=== PATIENT | male | born 1975 | race Hispanic/Latino ===

== ENCOUNTER 2017-05-20 07:34 | Inpatient (IN) | payer MEDICARE, OTHER ==
[2017-05-20 07:35] VITALS: PULSE 112; BMI 24.0
[2017-05-20] MEDS ORDERED: Sodium Chloride 0.9% 1,000 ML IV ONE ×2 (08:21→10:36)
[2017-05-20] MEDS ORDERED: Vancomycin 1 GM 1 GM/250 ML BAG IV STA (08:36)
--- NOTE | 2017-05-20 08:48 | C.PDOC ---
History Of Present Illness 41-year-old male, PMH includes HIV, Hep C, IVDA and EtOH Abuse, comes in with complaints of pain to his left arm for the past week, that is associated with redness and swelling, which has been worsening. Patient is also complaining of a sore throat. Last drug use was three days ago. Patient is homeless. Time Seen by Provider: 05/20/17 07:50 Chief Complaint (Nursing): Abnormal Skin Integrity History Per: Patient History/Exam Limitations: no limitations Onset/Duration Of Symptoms: Days Current Symptoms Are (Timing): Still Present Past Medical History Reviewed: Historical Data, Nursing Documentation, Vital Signs Vital Signs: Last Vital Signs Temp 98.2 F 05/20/17 07:40 Pulse 98 H 05/20/17 10:39 Resp 20 05/20/17 10:39 BP 133/91 H 05/20/17 10:39 Pulse Ox 99 05/20/17 10:39 - Medical History PMH: Anxiety, Arthritis, Bronchitis, Hepatitis (C), HIV, Pneumonia, Seizures - [facility] Procedures ALCOHOL DETOXIFICATION (08/13/14) BYPASS TRACHEA TO CUTANEOUS WITH TRACH DEV, OPEN APPROACH (04/25/16) DRAINAGE OF L PLEURAL CAV WITH DRAIN DEV, PERC APPROACH (04/25/16) DRAINAGE OF LEFT UPPER LOBE BRONCHUS, ENDO, DIAGN (04/25/16) DRAINAGE OF RIGHT LOWER LOBE BRONCHUS, ENDO, DIAGN (04/25/16) DRAINAGE OF RIGHT MIDDLE LOBE BRONCHUS, ENDO, DIAGN (04/25/16) INFLUENZA VACCINATION (08/13/14) INSERTION OF ENDOTRACHEAL AIRWAY INTO TRACHEA, VIA OPENING (04/25/16) INSERTION OF FEEDING DEVICE INTO STOMACH, PERC APPROACH (04/25/16) INSPECTION OF TRACHEOBRONCHIAL TREE, ENDO (04/25/16) RESPIRATORY VENTILATION, GREATER THAN 96 CONSECUTIVE HOURS (04/25/16) VACCINATION NEC (08/13/14) Family History: States: No Known Family Hx - Social History Hx Tobacco Use: Yes Hx Alcohol Use: Yes Hx Substance Use: Yes (used coccaine & heroine everyday) - Immunization History Hx Tetanus Toxoid Vaccination: No Hx Influenza Vaccination: No Hx Pneumococcal Vaccination: No Review Of Systems Except As Marked, All Systems Reviewed And Found Negative. Constitutional: Negative for: Fever, Chills ENT: Positive for: Throat Pain Respiratory: Negative for: Shortness of Breath Gastrointestinal: Negative for: Nausea, Vomiting Musculoskeletal: Positive for: Arm Pain Skin: Positive for: Other (infection) Neurological: Negative for: Weakness, Numbness, Headache, Dizziness Physical Exam - Physical Exam Appears: Non-toxic, No Acute Distress, Unkempt Skin: Warm, Dry, Other (Track gimenez to B/L forearms. 4x4cm tender, erythematous , fluctuant mass to proximal left forearm with surrounding ertyhema and streaking) Head: Atraumatic, Normacephalic Eye(s): bilateral: Normal Inspection Nose: Normal Oral Mucosa: Moist Lips: Normal Appearing Teeth: No Normal Dentition (Poor), Caries, Edentulous Throat: No Erythema, No Exudate, Other (No thrush) Neck: Normal ROM Chest: Symmetrical Cardiovascular: Rhythm Regular, No Murmur Respiratory: Normal Breath Sounds, No Accessory Muscle Use Extremity: Normal ROM, No Deformity, Other (see skin ) Pulses: Left Radial: Normal, Right Radial: Normal Neurological/Psych: Oriented x3, Normal Speech Gait: Unable To Assess ED Course And Treatment - Laboratory Results Result Diagrams: 05/20/17 09:20 05/20/17 09:20 Lab Interpretation: Abnormal O2 Sat by Pulse Oximetry: 100 (room air) Pulse Ox Interpretation: Normal Medical Decision Making Medical Decision Making: Impression: IVDA and acute cellulitis of arm Plan: * EtOH Serum, CMP, UDS * CBC, PT, PTT * IVF, Vanco * Blood Culture * Urinalysis Progress: Labs ordered and reviewed. Case discussed with Dr Reddy who also evaluated patient and agreed with plan. Order IV Vanco. 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 Jaivan ordered 1[address] Call and spoke to Dr Prudence Lebron who accepts admission Disposition - Disposition Disposition: HOSPITALIZED Disposition Time: 11:34 Condition: STABLE Forms: [facility] (Frisian) - Clinical Impression Clinical Impression: Cellulitis and abscess of upper arm and forearm, IV drug abuse, Alcohol abuse - Scribe Statement The provider has reviewed the documentation as recorded by the Scribe (Montse Black) All medical record entries made by the Scribe were at my direction and personally dictated by me. I have reviewed the chart and agree that the record accurately reflects my personal performance of the history, physical exam, medical decision making, and the department course for this patient. I have also personally directed, reviewed, and agree with the discharge instructions and disposition. Decision To Admit - Pt Status Changed To: Hospital Disposition Of: Inpatient - Admit Certification Admit to Inpatient:: After my assessment, the patient will require hospitalization for at least two midnights. This is because of the severity of symptoms shown, intensity of services needed, and/or the medical risk in this patient being treated as an outpatient. - InPatient: Physician Admission Certification: I certify that this patient requires 2 or more midnights of care for the following reason:: Patient with history of HIV, alcohol and IVDA with acute cellulitis and abcess of arm, will need IV antibiotics - . Bed Request Type: Regular Patient Diagnosis: Cellulitis and abscess of upper arm and forearm, IV drug abuse, Alcohol abuse
[2017-05-20] MEDS ORDERED: Vancomycin 1 GM 1 GM/250 ML BAG IVPB ONE (09:21)
[2017-05-20] MEDS ORDERED: Sodium Chloride 0.9% 1,000 ML ONE (09:21)
[2017-05-20 09:24] LABS: ABG ALLEN TEST POS; BASO % 0.5 % (0.0-2.0); DRAW SITE LR; EOS # 0.1 K/uL (0.0-0.7); EOS % 2.4 % (0.0-4.0); HEMATOCRIT 26.8 % (35.0-51.0); LYMPH # 0.6 K/uL (1.0-4.3); LYMPH % 9.9 % (20.0-40.0); MEAN CELL VOLUME 84.1 fL (80.0-94.0); MEAN CORPUSCULAR HEMOGLOBIN 27.6 pg (27.0-31.0); MEAN CORPUSCULAR HGB CONC 32.8 g/dL (33.0-37.0); MONO # 0.5 K/uL (0.0-0.8); MONO % 8.5 % (0.0-10.0); PLATELET COUNT 214 K/uL (130-400); RED CELL DISTRIBUTION WIDTH 18.7 % (11.5-14.5); WHITE BLOOD COUNT 6.1 K/uL (4.8-10.8)
[2017-05-20 09:29] LABS: RBC URINE < 1 /hpf (0-3); URINE BILIRUBIN NEGATIVE (NEGATIVE); URINE BLOOD NEGATIVE (NEGATIVE); URINE COLOR Yellow (YELLOW); URINE GLUCOSE (UA) NORMAL (Normal); URINE KETONE NEGATIVE (NEGATIVE); URINE LEUKOCYTE ESTERASE NEG Leu/uL (Negative); URINE PROTEIN NEGATIVE (NEGATIVE); URINE UROBILINOGEN NORMAL mg/dL (0.2-1.0); WBC URINE 1 /hpf (0-5)
[2017-05-20 09:35] LABS: CHLORIDE 102 mmol/L (98-107); SODIUM 137 mmol/L (132-148)
[2017-05-20 09:36] LABS: POTASSIUM 3.3 mmol/L (3.6-5.2)
[2017-05-20 09:38] LABS: ALB/GLOB RATIO 0.7 (1.0-2.1); ALKALINE PHOSPHATASE 124 U/L (38-126); ALT/SGPT 48 U/L (21-72); AST/SGOT 110 U/L (17-59); BILIRUBIN,TOTAL 0.5 mg/dL (0.2-1.3); BLOOD UREA NITROGEN 10 mg/dL (9-20); CARBON DIOXIDE 24 mmol/L (22-30); GFR AFRICAN-AMERICAN > 60; GLUCOSE,RANDOM 103 mg/dL (75-110); TOTAL PROTEIN 6.9 g/dL (6.3-8.3)
[2017-05-20 09:39] LABS: ALCOHOL SERUM < 10 mg/dl (0-10)
[2017-05-20 10:20] LABS: BASOPHIL 1 % (0-2); EOSINOPHIL 2 % (0-4); NEUTROPHIL 81 % (50-75); TOTAL CELLS COUNTED 100
[2017-05-20 10:22] LABS: LARGE PLATELETS PRESENT
[2017-05-20] MEDS ORDERED: Potassium Chloride 20 mEq ER Tab PO STA (11:45)
[2017-05-20] MEDS ORDERED: Potassium Chloride 20 mEq ER Tab PO ONE ×2 (11:53→22:45)
--- NOTE | 2017-05-20 19:49 | CP.PCM.HP ---
Present on Admission - Present on Admission Any Indicators Present on Admission: No Past Patient History - Infectious Disease Hx of Infectious Diseases: None - Past Medical History & Family History Past Medical History?: Yes - Past Social History Smoking Status: Light Smoker < 10 Cigarettes Daily - CARDIAC Hx Cardiac Disorders: No - PULMONARY Hx Bronchitis: Yes Hx Pneumonia: Yes - NEUROLOGICAL Hx Seizures: Yes - HEENT Hx HEENT Problems: No - RENAL Hx Chronic Kidney Disease: No Hx Kidney Stones: No - ENDOCRINE/METABOLIC Hx Endocrine Disorders: No - HEMATOLOGICAL/ONCOLOGICAL Hx Human Immunodeficiency Virus (HIV): Yes - INTEGUMENTARY Hx Dermatological Problems: No - MUSCULOSKELETAL/RHEUMATOLOGICAL Hx Falls: No - GASTROINTESTINAL Hx Gastrointestinal Disorders: No - GENITOURINARY/GYNECOLOGICAL Hx Genitourinary Disorders: No - PSYCHIATRIC Hx Substance Use: Yes - SURGICAL HISTORY Other/Comment: intracranial surgery as a child - ANESTHESIA Hx Anesthesia: Yes Hx Anesthesia Reactions: No Hx Malignant Hyperthermia: No Meds Allergies/Adverse Reactions: Allergies Allergy/AdvReac Type Severity Reaction Status Date / Time acetaminophen [From Tylenol] Allergy Mild RASH Verified 05/23/16 08:59 ketorolac tromethamine Allergy RASH Verified 05/23/16 08:59 [From Toradol] Results - Vital Signs Recent Vital Signs: Last Vital Signs Temp 100.0 F H 05/20/17 15:07 Pulse 94 H 05/20/17 15:07 Resp 20 05/20/17 15:07 BP 157/99 H 05/20/17 15:07 Pulse Ox 99 05/20/17 15:07 - Labs Result Diagrams: 05/20/17 09:20 05/20/17 09:20
--- NOTE | 2017-05-20 20:55 | CP.PCM.CON ---
<Roshan Ortiz - Last Filed: 05/20/17 20:50> History of Present Illness - History of Present Illness History of Present Illness: Surgery: Dr. Lowry CC: LUE abscess HPI: 41M w. pmh of IVDA, hep C, HIV, has not taken meds in 3 yrs, presents to ED w. progressively worsening LUE abscess x 1 week. Pt states that he noticed the abscess develop a few days after injecting heroin in the L arm. Abscess grew in size and pain increased in intensity. Pt states that the pain is constant, made worse w. movement or when pressure is applied. He denies any drainage. He does report F/C and did have N/V. He denies VILCHIS/blurred vision, no CP/palpitations, no SOB/cough, no diarrhea, no hematuria/dysuira, no weakness/ fatigue. PMH: HIV, Hep C PSH: none Meds: none ALL: tylenol Social: +Heroin/Cocaine Fhx: non-contributory Review of Systems - Review of Systems All systems: reviewed and no additional remarkable complaints except (HPI) Past Patient History - Infectious Disease Hx of Infectious Diseases: None - Past Medical History & Family History Past Medical History?: Yes - Past Social History Smoking Status: Light Smoker < 10 Cigarettes Daily - CARDIAC Hx Cardiac Disorders: No - PULMONARY Hx Bronchitis: Yes Hx Pneumonia: Yes - NEUROLOGICAL Hx Seizures: Yes - HEENT Hx HEENT Problems: No - RENAL Hx Chronic Kidney Disease: No Hx Kidney Stones: No - ENDOCRINE/METABOLIC Hx Endocrine Disorders: No - HEMATOLOGICAL/ONCOLOGICAL Hx Human Immunodeficiency Virus (HIV): Yes - INTEGUMENTARY Hx Dermatological Problems: No - MUSCULOSKELETAL/RHEUMATOLOGICAL Hx Falls: No - GASTROINTESTINAL Hx Gastrointestinal Disorders: No - GENITOURINARY/GYNECOLOGICAL Hx Genitourinary Disorders: No - PSYCHIATRIC Hx Substance Use: Yes - SURGICAL HISTORY Other/Comment: intracranial surgery as a child - ANESTHESIA Hx Anesthesia: Yes Hx Anesthesia Reactions: No Hx Malignant Hyperthermia: No Meds Allergies/Adverse Reactions: Allergies Allergy/AdvReac Type Severity Reaction Status Date / Time acetaminophen [From Tylenol] Allergy Mild RASH Verified 05/23/16 08:59 ketorolac tromethamine Allergy RASH Verified 05/23/16 08:59 [From Toradol] - Medications Medications: Current Medications Hydromorphone HCl (Dilaudid) 2 mg IVP Q6H PRN PRN Reason: Pain, severe (8-10) Last Admin: 05/20/17 17:55 Dose: 2 mg Ceftriaxone Sodium (Rocephin Iv 1 Gm Duplex) 50 mls @ 50 mls/30 min IVPB Q12H [facility] Vancomycin/Sodium Chloride (Vancocin) 1 gm in 200 mls @ 133 mls/hr IVPB Q12H [facility] Stop: 05/25/17 22:01 Potassium Chloride (Potassium Chloride 20 Meq/100 Ml) 20 meq in 100 mls @ 50 mls/hr IVPB ONCE ONE Stop: 05/20/17 22:59 Last Admin: 05/20/17 20:27 Dose: 50 mls/hr Lorazepam (Ativan) 1 mg IVP Q6H PRN PRN Reason: Anxiety Last Admin: 05/20/17 20:22 Dose: 1 mg Physical Exam - Constitutional Appears: Non-toxic, No Acute Distress, Unkempt, Older Than Stated Age - Head Exam Head Exam: ATRAUMATIC, NORMOCEPHALIC - Eye Exam Eye Exam: EOMI. absent: Scleral icterus Pupil Exam: PERRL - ENT Exam ENT Exam: Mucous Membranes Moist Additional comments: poor dentition - Neck Exam Neck exam: Positive for: Full Rom - Respiratory Exam Respiratory Exam: NORMAL BREATHING PATTERN. absent: Accessory Muscle Use, Respiratory Distress - Cardiovascular Exam Cardiovascular Exam: REGULAR RHYTHM - GI/Abdominal Exam GI & Abdominal Exam: Soft. absent: Tenderness - Extremities Exam Extremities exam: Negative for: calf tenderness, pedal edema Additional comments: LUE, large abscess on forearm, + erythema, +induration/fluctuance, tender to palpation, sensation and motor fxn intact, distal pulse palpable - Neurological Exam Neurological exam: Alert, Oriented x3 - Psychiatric Exam Psychiatric exam: Normal Affect, Normal Mood - Skin Skin Exam: Dry, Warm Results - Vital Signs Recent Vital Signs: Last Vital Signs Temp 100.0 F H 05/20/17 15:07 Pulse 94 H 05/20/17 15:07 Resp 20 05/20/17 15:07 BP 157/99 H 05/20/17 15:07 Pulse Ox 99 05/20/17 15:07 - Labs Result Diagrams: 05/20/17 09:20 05/20/17 09:20 Assessment & Plan - Assessment and Plan (Free Text) Assessment: 41M w. LUE abscess -vanco/zosyn -pain meds -warm compress 20 min TID to affected area -OR Monday for I&D -d/w attending Angel PGY3 <Elpidio Lowry - Last Filed: 05/22/17 10:40> Meds - Medications Medications: Current Medications Al Hydrox/Mg Hydrox/Simethicone (Maalox 30 Ml) 30 ml PO Q6 PRN PRN Reason: Indigestion / Heartburn Last Admin: 05/21/17 16:08 Dose: 30 ml Chlordiazepoxide (Librium) 25 mg PO Q6 [facility] PRN Reason: Taper Stop: 05/25/17 17:59 Last Admin: 05/22/17 06:03 Dose: Not Given Hydromorphone HCl (Dilaudid) 2 mg IVP Q6H PRN PRN Reason: Pain, severe (8-10) Last Admin: 05/22/17 07:59 Dose: 2 mg Hydromorphone HCl (Dilaudid) 0.5 mg IVP Q5M PRN PRN Reason: Pain, severe (8-10) Stop: 05/22/17 12:22 Vancomycin/Sodium Chloride (Vancocin) 1 gm in 200 mls @ 133 mls/hr IVPB Q12H [facility] Stop: 05/25/17 22:01 Last Admin: 05/21/17 22:37 Dose: 133 mls/hr Piperacillin Sod/Tazobactam Sod (Zosyn 3.375 Gm Iv Premix) 3.375 gm in 50 mls @ 100 mls/hr IVPB Q6H [facility] Last Admin: 05/22/17 04:16 Dose: 100 mls/hr Sodium Chloride (Sodium Chloride 0.9%) 1,000 mls @ 100 mls/hr IV .Q10H [facility] Last Admin: 05/22/17 04:51 Dose: 100 mls/hr Lorazepam (Ativan) 1 mg IVP Q6H PRN PRN Reason: Anxiety Last Admin: 05/22/17 04:41 Dose: 1 mg Methadone HCl (Methadone) 5 mg PO DAILY [facility] Stop: 05/23/17 11:00 Last Admin: 05/22/17 09:10 Dose: 5 mg Ondansetron HCl (Zofran Inj) 4 mg IVP ONCE PRN PRN Reason: Nausea/Vomiting Stop: 05/22/17 12:22 Trimethoprim/Sulfamethoxazole (Bactrim Ds Tab) 1 tab PO Q12H [facility] Last Admin: 05/22/17 04:24 Dose: 1 tab Results - Vital Signs Recent Vital Signs: Last Vital Signs Temp 98.4 F 05/22/17 09:08 Pulse 96 H 05/22/17 09:08 Resp 20 05/22/17 09:08 BP 128/86 05/22/17 09:08 Pulse Ox 98 05/22/17 09:08 - Labs Result Diagrams: 05/20/17 09:20 05/21/17 13:22 Labs: Laboratory Results - last 24 hr 05/21/17 13:22 Sodium 134 Potassium 4.2 Chloride 98 Carbon Dioxide 23 Anion Gap 17 BUN 12 Creatinine 0.6 L Est GFR ( Amer) > 60 Est GFR (Non-Af Amer) > 60 Random Glucose 137 H Calcium 8.3 L Total Bilirubin 0.4 AST 91 H ALT 43 Alkaline Phosphatase 87 Total Protein 6.9 Albumin 2.9 L Globulin 4.0 H Albumin/Globulin Ratio 0.7 L Attending/Attestation - Attestation I have personally seen and examined this patient.: Yes I have fully participated in the care of the patient.: Yes I have reviewed all pertinent clinical information: Yes Notes (Text): 05/22/17 10:31 Pt was seen and examined at bedside Agree with above note and assessment Pt with Left forearm cellulitis, IVDA C/w IV antibiotics Plan d/w pt in detail Risk and benefit explained in detail.
[2017-05-20] MEDS: Aluminum Hydroxide/Magnesium Hydroxide Susp (30 mL) PO PRN (22:43)
[2017-05-20] MEDS: cefTRIAXone IV 1 gm in Dextros 50 ML IVPB SCH (22:44)
[2017-05-20] MEDS: Vancomycin 1 gm/NS 200 ml 1 GM/200 ML BAG IVPB SCH (23:18)
[2017-05-21] MEDS ORDERED: Aluminum Hydroxide/Magnesium Hydroxide Susp (30 mL) PO SCH
[2017-05-21] MEDS: Piperacill/Tazo 3.375gm in Dex 3.375 GM/50 ML BAG IVPB SCH ×5 (01:00→22:36)
[2017-05-21] MEDS: cefTRIAXone IV 1 gm in Dextros 50 ML IVPB SCH (08:19)
[2017-05-21] MEDS: Vancomycin 1 gm/NS 200 ml 1 GM/200 ML BAG IVPB SCH ×2 (10:45→22:37)
--- NOTE | 2017-05-21 10:48 | CP.PCM.PN ---
<Juvencio George - Last Filed: 05/21/17 10:45> Subjective - Date & Time of Evaluation Date of Evaluation: 05/21/17 Time of Evaluation: 07:57 - Subjective Subjective: SURGERY NOTE FOR DR. LOWRY 41M seen and examined at bedside. Continues to complain of left forearm pain 2/ 2 to abscess. denies fevers/chills. Objective - Vital Signs/Intake and Output Vital Signs (last 24 hours): Temp Pulse Resp BP Pulse Ox 98.1 F 108 H 18 125/85 97 05/21/17 07:05 05/21/17 09:48 05/21/17 07:05 05/21/17 09:48 05/21/17 07:05 Intake and Output: 05/21/17 05/21/17 06:59 18:59 Intake Total 1730 Output Total 2400 Balance -670 - Medications Medications: Current Medications Al Hydrox/Mg Hydrox/Simethicone (Maalox 30 Ml) 30 ml PO Q6 PRN PRN Reason: Indigestion / Heartburn Last Admin: 05/20/17 22:43 Dose: 30 ml Hydromorphone HCl (Dilaudid) 2 mg IVP Q6H PRN PRN Reason: Pain, severe (8-10) Last Admin: 05/21/17 08:17 Dose: 2 mg Ceftriaxone Sodium (Rocephin Iv 1 Gm Duplex) 50 mls @ 50 mls/30 min IVPB Q12H [facility] Last Admin: 05/21/17 08:19 Dose: 50 mls/30 min Vancomycin/Sodium Chloride (Vancocin) 1 gm in 200 mls @ 133 mls/hr IVPB Q12H [facility] Stop: 05/25/17 22:01 Last Admin: 05/20/17 23:18 Dose: 133 mls/hr Piperacillin Sod/Tazobactam Sod (Zosyn 3.375 Gm Iv Premix) 3.375 gm in 50 mls @ 100 mls/hr IVPB Q6H [facility] Last Admin: 05/21/17 09:55 Dose: 100 mls/hr Lorazepam (Ativan) 1 mg IVP Q6H PRN PRN Reason: Anxiety Last Admin: 05/21/17 09:55 Dose: 1 mg - Labs Labs: PT 10.9 SECONDS (9.7-12.2) 05/20/17 09:20 INR 1.0 05/20/17 09:20 APTT 26 SECONDS (21-34) 05/20/17 09:20 - Constitutional Appears: Non-toxic, No Acute Distress - Respiratory Exam Respiratory Exam: Clear to Ausculation Bilateral, NORMAL BREATHING PATTERN - Cardiovascular Exam Cardiovascular Exam: REGULAR RHYTHM, +S1, +S2 - Extremities Exam Additional comments: left forearm abscess. fluctuant, non-draining Assessment and Plan - Assessment and Plan (Free Text) Assessment: 41M with left forearm abscess Plan: - I&D tomorrow in [place] - Pre-op - NPO aftermidnight - Consent Further recs discuss with Dr. Essence George, PGY2 <Elpidio Lowry - Last Filed: 05/22/17 10:34> Objective - Vital Signs/Intake and Output Vital Signs (last 24 hours): Temp Pulse Resp BP Pulse Ox 98.4 F 96 H 20 128/86 98 05/22/17 09:08 05/22/17 09:08 05/22/17 09:08 05/22/17 09:08 05/22/17 09:08 Intake and Output: 05/22/17 05/22/17 06:59 18:59 Intake Total 2420 Output Total 2300 Balance 120 - Medications Medications: Current Medications Al Hydrox/Mg Hydrox/Simethicone (Maalox 30 Ml) 30 ml PO Q6 PRN PRN Reason: Indigestion / Heartburn Last Admin: 05/21/17 16:08 Dose: 30 ml Chlordiazepoxide (Librium) 25 mg PO Q6 [facility] PRN Reason: Taper Stop: 05/25/17 17:59 Last Admin: 05/22/17 06:03 Dose: Not Given Hydromorphone HCl (Dilaudid) 2 mg IVP Q6H PRN PRN Reason: Pain, severe (8-10) Last Admin: 05/22/17 07:59 Dose: 2 mg Hydromorphone HCl (Dilaudid) 0.5 mg IVP Q5M PRN PRN Reason: Pain, severe (8-10) Stop: 05/22/17 12:22 Vancomycin/Sodium Chloride (Vancocin) 1 gm in 200 mls @ 133 mls/hr IVPB Q12H [facility] Stop: 05/25/17 22:01 Last Admin: 05/21/17 22:37 Dose: 133 mls/hr Piperacillin Sod/Tazobactam Sod (Zosyn 3.375 Gm Iv Premix) 3.375 gm in 50 mls @ 100 mls/hr IVPB Q6H [facility] Last Admin: 05/22/17 04:16 Dose: 100 mls/hr Sodium Chloride (Sodium Chloride 0.9%) 1,000 mls @ 100 mls/hr IV .Q10H [facility] Last Admin: 05/22/17 04:51 Dose: 100 mls/hr Lorazepam (Ativan) 1 mg IVP Q6H PRN PRN Reason: Anxiety Last Admin: 05/22/17 04:41 Dose: 1 mg Methadone HCl (Methadone) 5 mg PO DAILY [facility] Stop: 05/23/17 11:00 Last Admin: 05/22/17 09:10 Dose: 5 mg Ondansetron HCl (Zofran Inj) 4 mg IVP ONCE PRN PRN Reason: Nausea/Vomiting Stop: 05/22/17 12:22 Trimethoprim/Sulfamethoxazole (Bactrim Ds Tab) 1 tab PO Q12H [facility] Last Admin: 05/22/17 04:24 Dose: 1 tab - Labs Labs: 05/21/17 13:22 PT 10.9 SECONDS (9.7-12.2) 05/20/17 09:20 INR 1.0 05/20/17 09:20 APTT 26 SECONDS (21-34) 05/20/17 09:20 Attending/Attestation - Attestation I have personally seen and examined this patient.: Yes I have fully participated in the care of the patient.: Yes I have reviewed all pertinent clinical information, including history, physical exam and plan: Yes Notes (Text): 05/22/17 10:33 Pt was seen and examined at bedside Agree with above note and assessment Pt with Left forearm cellulitis with Abscess, IVDA OR for I & D and debridement. Consent NPO, IVF C/w IV antibiotics Plan d/w pt in detail Risk and benefit explained in detail.
[2017-05-21 13:39] LABS: CHLORIDE 98 mmol/L (98-107); SODIUM 134 mmol/L (132-148)
[2017-05-21 13:40] LABS: POTASSIUM 4.2 mmol/L (3.6-5.2)
[2017-05-21 13:42] LABS: ALB/GLOB RATIO 0.7 (1.0-2.1); ALKALINE PHOSPHATASE 87 U/L (38-126); ALT/SGPT 43 U/L (21-72); AST/SGOT 91 U/L (17-59); BILIRUBIN,TOTAL 0.4 mg/dL (0.2-1.3); BLOOD UREA NITROGEN 12 mg/dL (9-20); CARBON DIOXIDE 23 mmol/L (22-30); GFR AFRICAN-AMERICAN > 60; GLUCOSE,RANDOM 137 mg/dL (75-110); TOTAL PROTEIN 6.9 g/dL (6.3-8.3)
[2017-05-21 13:43] LABS: CALCIUM 8.3 mg/dl (8.6-10.4)
[2017-05-21] MEDS: Aluminum Hydroxide/Magnesium Hydroxide Susp (30 mL) PO PRN (16:08)
[2017-05-21] MEDS: Sodium Chloride 0.9% 1,000 ML IV SCH (16:10)
--- NOTE | 2017-05-21 16:15 | PCM.PSYCH ---
Initial Psychiatric Evaluation - Initial Psychiatric Evaluation Type of Admission: Voluntary Legal Status: Capacity Chief Complaint (in patient's own words): 'I am in pain.' History of Present Illness and Precipitating Events: Patient is a 41 years old CM, who lives alone and currently unemployed was admitted on the medical floor because of abscess on the left hand. Today patient was consulted because of history of opiate dependence, cocaine dependence and alcohol dependence. Patient reports a long history of drinking and abusing heroin & cocaine. As per the patient he injects 15-20 bags of heroin daily, along with 1 bag of cocaine. She also reports of drinking 8-10 pints of vodka on a daily basis. As per the patient, 2 days ago he injected 15 bags of heroin, and yesterday he developed an abscess and severe pain in the arm and so he came to the hospital to get help. Patient also reports of drinking 10 pints of vodka. Patient reports withdrawal symptoms from heroin and drinking including cramps, joint pains, back pain, sweating, headaches, anxiety and nausea. He reports irritable mood, but denies any feelings of hopelessness or helplessness. He denies any suicidal ideation or any homicidal ideation in the past. He denies any auditory or visual hallucinations or any psychotic symptoms. He denies any other substance abuse. Past medical history Arm abscess, hep C Current Medications: Active Medications Generic Name Dose Route Start Last Admin Trade Name Freq PRN Reason Stop Dose Admin Al Hydrox/Mg Hydrox/Simethicone 30 ml 05/20/17 22:23 05/21/17 16:08 Maalox 30 Ml PO 30 ml Q6 PRN Administration Indigestion / Heartburn Hydromorphone HCl 2 mg 05/20/17 17:27 05/21/17 14:02 Dilaudid IVP 2 mg Q6H PRN Administration Pain, severe (8-10) Vancomycin/Sodium Chloride 1 gm in 200 mls @ 133 mls/hr 05/20/17 22:00 10:45 Vancocin IVPB 05/25/17 22:01 133 mls/hr Q12H [facility] Administration Piperacillin Sod/Tazobactam Sod 3.375 gm in 50 mls @ 100 mls/hr 05/20/17 22: 00 05/21/17 16:08 Zosyn 3.375 Gm Iv Premix IVPB 100 mls/hr Q6H [facility] Administration Sodium Chloride 1,000 mls @ 100 mls/hr 05/21/17 15:45 05/21/17 16:10 Sodium Chloride 0.9% IV 100 mls/hr .Q10H [facility] Administration Lorazepam 1 mg 05/20/17 13:49 05/21/17 09:55 Ativan IVP 1 mg Q6H PRN Administration Anxiety Past Psychiatric History - Past Psychiatric History Previous Treatment History: None Pertinent Medical Hx (Current Medical&Sleep Prob, Allergies): Allergies Allergy/AdvReac Type Severity Reaction Status Date / Time acetaminophen [From Tylenol] Allergy Mild RASH Verified 05/23/16 08:59 ketorolac tromethamine Allergy RASH Verified 05/23/16 08:59 [From Toradol] No Known Home Med 10/03/16 Review of Systems - Review of Systems All systems: reviewed and no additional remarkable complaints except - Psychiatric Psychiatric: Anxiety, Irritability Mental Status Examination - Personal Presentation Personal Presentation: Looks stated age - Affect Affect: Constricted - Motor Activity Motor Activity: Calm - Reliability in Providing Information Reliability in Providing Information: Good - Speech Speech: Organized - Mood Mood: Anxious - Formal Thought Process Formal Thought Process: No Impairment - Obsessions/Compulsions Obsessions: No Compulsions: No - Cognitive Functions Orientation: Person, Place, Situation, Time Sensorium: Alert Attention/Concentration: Attentive Abstract Thinking: [place] Estimate of Intelligence: Below average Judgement: Imparied, as evidence by: Poor judgement, Intact, as evidence by: Insight regarding need for hospitalization - Risk Risk: Withdrawal, Diminished functioning DSM 5 DX - DSM 5 DSM 5 Diagnosis: Opioid use disorder severe Opioid withdrawal Alcohol use disorder severe Alcohol withdrawal uncomplicated Cocaine use disorder moderate - Recommended/Plan of Treatment Treatment Recommendations and Plan of Treatment: Opioid use disorder severe Opioid withdrawal CBT Psychoeducation Supportive therapy, individual therapy Use NH for abstinence Clonidine when necessary Methadone taper Alcohol use disorder severe Alcohol withdrawal uncomplicated CBT Psychoeducation Supportive therapy, individual therapy Use NH for abstinence Librium when necessary Librium taper Folic acid/thiamine/multivitamin - Smoking Cessation Smoking Cessation Initiated: No
--- NOTE | 2017-05-21 16:19 | CP.PCM.PN ---
Subjective - Date & Time of Evaluation Date of Evaluation: 05/21/17 Time of Evaluation: 13:00 - Subjective Subjective: clinically same Objective - Vital Signs/Intake and Output Vital Signs (last 24 hours): Temp Pulse Resp BP Pulse Ox 98.1 F 108 H 18 125/85 97 05/21/17 07:05 05/21/17 09:48 05/21/17 07:05 05/21/17 09:48 05/21/17 07:05 Intake and Output: 05/21/17 05/21/17 06:59 18:59 Intake Total 1730 830 Output Total 2400 1999 Balance -670 1170 - Medications Medications: Current Medications Al Hydrox/Mg Hydrox/Simethicone (Maalox 30 Ml) 30 ml PO Q6 PRN PRN Reason: Indigestion / Heartburn Last Admin: 05/21/17 16:08 Dose: 30 ml Chlordiazepoxide (Librium) 0 mg PO Q6 CRISTINA PRN Reason: Taper Stop: 05/25/17 17:59 Hydromorphone HCl (Dilaudid) 2 mg IVP Q6H PRN PRN Reason: Pain, severe (8-10) Last Admin: 05/21/17 14:02 Dose: 2 mg Vancomycin/Sodium Chloride (Vancocin) 1 gm in 200 mls @ 133 mls/hr IVPB Q12H [facility] Stop: 05/25/17 22:01 Last Admin: 05/21/17 10:45 Dose: 133 mls/hr Piperacillin Sod/Tazobactam Sod (Zosyn 3.375 Gm Iv Premix) 3.375 gm in 50 mls @ 100 mls/hr IVPB Q6H [facility] Last Admin: 05/21/17 16:08 Dose: 100 mls/hr Sodium Chloride (Sodium Chloride 0.9%) 1,000 mls @ 100 mls/hr IV .Q10H C[facility]INA Last Admin: 05/21/17 16:10 Dose: 100 mls/hr Lorazepam (Ativan) 1 mg IVP Q6H PRN PRN Reason: Anxiety Last Admin: 05/21/17 09:55 Dose: 1 mg Methadone HCl (Methadone) 10 mg PO STAT STA Stop: 05/21/17 16:16 Methadone HCl (Methadone) 5 mg PO DAILY [facility] Stop: 05/23/17 11:00 - Labs Labs: 05/21/17 13:22 PT 10.9 SECONDS (9.7-12.2) 05/20/17 09:20 INR 1.0 05/20/17 09:20 APTT 26 SECONDS (21-34) 05/20/17 09:20 - Constitutional Appears: Well - Head Exam Head Exam: ATRAUMATIC, NORMAL INSPECTION, NORMOCEPHALIC - Eye Exam Eye Exam: EOMI, Normal appearance, PERRL - ENT Exam ENT Exam: Mucous Membranes Moist, Normal Exam - Neck Exam Neck Exam: Full ROM, Normal Inspection. absent: Lymphadenopathy - Respiratory Exam Respiratory Exam: Decreased Breath Sounds - Cardiovascular Exam Cardiovascular Exam: REGULAR RHYTHM, +S1, +S2. absent: Murmur - GI/Abdominal Exam GI & Abdominal Exam: Diminished Bowel Sounds - Rectal Exam Rectal Exam: Deferred Assessment and Plan (1) Alcohol abuse Status: Acute (2) Cellulitis and abscess of upper arm and forearm Status: Acute (3) IV drug abuse Status: Acute (4) Asthma Status: Acute (5) Bronchitis Status: Acute (6) COPD exacerbation Status: Acute (7) Cellulitis Status: Acute (8) Chest pain Status: Acute (9) Chest pain Status: Acute (10) Cocaine abuse Status: Acute (11) Contusion Status: Acute (12) Drug abuse Status: Acute (13) Foot pain, bilateral Status: Acute (14) Homeless single person Status: Acute (15) Knee contusion Status: Acute (16) Leg pain Status: Acute (17) Pharyngitis Status: Acute (18) Polysubstance (excluding opioids) dependence Status: Acute (19) Prophylactic measure Status: Acute (20) Seizure Status: Acute (21) Unable to ambulate Status: Acute (22) Weakness of both lower extremities Status: Acute (23) Withdrawal symptoms, alcohol Status: Acute
--- NOTE | 2017-05-21 16:56 | CP.PCM.CON ---
History of Present Illness - History of Present Illness History of Present Illness: 41-year-old male, PMH includes HIV, Hep C, IVDA and EtOH Abuse, comes in with complaints of pain to his left arm for the past week, that is associated with redness and swelling, which has been worsening. Patient is also complaining of a sore throat. Last drug use was three days ago. Patient is homeless. - Medical History PMH: Anxiety, Arthritis, Bronchitis, Hepatitis (C), HIV, Pneumonia, Seizures - [facility] Procedures ALCOHOL DETOXIFICATION (08/13/14) BYPASS TRACHEA TO CUTANEOUS WITH TRACH DEV, OPEN APPROACH (04/25/16) DRAINAGE OF L PLEURAL CAV WITH DRAIN DEV, PERC APPROACH (04/25/16) DRAINAGE OF LEFT UPPER LOBE BRONCHUS, ENDO, DIAGN (04/25/16) DRAINAGE OF RIGHT LOWER LOBE BRONCHUS, ENDO, DIAGN (04/25/16) DRAINAGE OF RIGHT MIDDLE LOBE BRONCHUS, ENDO, DIAGN (04/25/16) INFLUENZA VACCINATION (08/13/14) INSERTION OF ENDOTRACHEAL AIRWAY INTO TRACHEA, VIA OPENING (04/25/16) INSERTION OF FEEDING DEVICE INTO STOMACH, PERC APPROACH (04/25/16) INSPECTION OF TRACHEOBRONCHIAL TREE, ENDO (04/25/16) RESPIRATORY VENTILATION, GREATER THAN 96 CONSECUTIVE HOURS (04/25/16) VACCINATION NEC (08/13/14) Review of Systems - Constitutional Constitutional: As Per HPI - EENT Eyes: absent: As Per HPI, Blind Spots, Blurred Vision, Change in Vision, Decreased Night Vision, Diplopia, Discharge, Dry Eye, Exophthalmos, Floaters, Irritation, Itchy Eyes, Loss of Peripheral Vision, Pain, Photophobia, Requires Corrective Lenses, Sees Flashes, Spots in Vision, Tunnel Vision, Other Visual Disturbances, Loss of Vision, Other Ears: absent: As Per HPI, Decreased Hearing, Ear Discharge, Ear Pain, Tinnitus, Abnormal Hearing, Disequilibrium, Dizziness, Other Nose/Mouth/Throat: absent: As Per HPI, Epistaxis, Nasal Congestion, Nasal Discharge, Nasal Obstruction, Nasal Trauma, Nose Pain, Post Nasal Drip, Sinus Pain, Sinus Pressure, Bleeding Gums, Change in Voice, Dental Pain, Dry Mouth, Dysphagia, Halitosis, Hoarsness, Lip Swelling, Mouth Lesions, Mouth Pain, Odynophagia, Sore Throat, Throat Swelling, Tongue Swelling, Facial Pain, Neck Pain, Neck Mass, Other - Cardiovascular Cardiovascular: absent: As Per HPI, Acrocyanosis, Chest Pain, Chest Pain at Rest , Chest Pain with Activity, Claudication, Diaphoresis, Dyspnea, Dyspnea on Exertion, Edema, Irregular Heart Rhythm, Pain Radiating to Arm/Neck/Jaw, Leg Edema, Leg Ulcers, Lightheadedness, Orthopnea, Palpitations, Paroxysmal Nocturnal Dyspnea, Pedal Edema, Radiating Pain, Rapid Heart Rate, Slow Heart Rate, Syncope, Other - Respiratory Respiratory: absent: As Per HPI, Cough, Dyspnea, Hemoptysis, Dyspnea on Exertion , Wheezing, Snoring, Stridor, Pain on Inspiration, Chest Congestion, Excessive Mucous Production, Change in Mucous Color, Pain with Coughing, Other - Gastrointestinal Gastrointestinal: absent: As Per HPI, Abdominal Pain, Belching, Bloating, Change in Bowel Habits, Change in Stool Character, Coffee Ground Emesis, Constipation, Cramping, Diarrhea, Dyspepsia, Dysphagia, Early Satiety, Excessive Flatus, Fecal Incontinence, Heartburn, Hematemesis, Hematochezia, Loose Stools, Melena, Nausea, Odynophagia, Temesmus, Vomiting, Other - Genitourinary Genitourinary: absent: As Per HPI, Change in Urinary Stream, Difficulty Urinating, Dysuria, Flank Pain, Hematuria, Pyuria, Nocturia, Urinary Incontinence, Urinary Frequency, Urinary Hesitance, Urinary Urgency, Voiding Freq/Small Amts, Freq UTI, Hx Renal/Bladder Calculi, Hx /Renal Surgery, Bladder Distension, Other - Musculoskeletal Musculoskeletal: As Per HPI - Integumentary Integumentary: As Per HPI, Skin Pain, Wounds - Neurological Neurological: absent: As Per HPI, Abnormal Gait, Abnormal Hearing, Abnormal Movements, Abnormal Speech, Behavioral Changes, Burning Sensations, Confusion, Convulsions, Disequilibrium, Dizziness, Numbness, Focal Weakness, Frequent Falls , Headaches, Lack of Coordination, Loss of Vision, Memory Loss, Paresthesias, Radicular Pain, Restless Legs, Sensory Deficit, Syncope, Tingling, Tremor, Vertigo, Weakness, Other Visual Disturbances, Other - Psychiatric Psychiatric: absent: As Per HPI, Abnormal Sleep Pattern, Anhedonia, Anxiety, Auditory Hallucinations, Behavioral Changes, Change in Appetite, Change in Libido, Confusion, Depression, Difficulty Concentrating, Hallucinations, Homicidal Ideation, Hopelessness, Irritability, Memory Loss, Mood Swings, Panic Attacks, Paranoia, Suicidal Ideation, Visual Hallucinations, Tactile Hallucinations, Other - Endocrine Endocrine: absent: As Per HPI, Change in Body Appearance, Change in Libido, Cold Intolorance, Deepening of Voice, Excessive Sweating, Fatigue, Flushing, Heat Intolorance, Increase in Ring/Shoe/Hat Size, Palpitations, Polydipsia, Polyphagia, Polyuria, Other - Hematologic/Lymphatic Hematologic: absent: As Per HPI, Easy Bleeding, Easy Bruising, Lymphadenopathy, Other Past Patient History - Infectious Disease Hx of Infectious Diseases: None - Past Medical History & Family History Past Medical History?: Yes - Past Social History Smoking Status: Light Smoker < 10 Cigarettes Daily - CARDIAC Hx Cardiac Disorders: No - PULMONARY Hx Bronchitis: Yes Hx Pneumonia: Yes - NEUROLOGICAL Hx Seizures: Yes - HEENT Hx HEENT Problems: No - RENAL Hx Chronic Kidney Disease: No Hx Kidney Stones: No - ENDOCRINE/METABOLIC Hx Endocrine Disorders: No - HEMATOLOGICAL/ONCOLOGICAL Hx Human Immunodeficiency Virus (HIV): Yes - INTEGUMENTARY Hx Dermatological Problems: No - MUSCULOSKELETAL/RHEUMATOLOGICAL Hx Falls: No - GASTROINTESTINAL Hx Gastrointestinal Disorders: No - GENITOURINARY/GYNECOLOGICAL Hx Genitourinary Disorders: No - PSYCHIATRIC Hx Substance Use: Yes - SURGICAL HISTORY Other/Comment: intracranial surgery as a child - ANESTHESIA Hx Anesthesia: Yes Hx Anesthesia Reactions: No Hx Malignant Hyperthermia: No Meds Allergies/Adverse Reactions: Allergies Allergy/AdvReac Type Severity Reaction Status Date / Time acetaminophen [From Tylenol] Allergy Mild RASH Verified 05/23/16 08:59 ketorolac tromethamine Allergy RASH Verified 05/23/16 08:59 [From Toradol] - Medications Medications: Current Medications Al Hydrox/Mg Hydrox/Simethicone (Maalox 30 Ml) 30 ml PO Q6 PRN PRN Reason: Indigestion / Heartburn Last Admin: 05/21/17 16:08 Dose: 30 ml Chlordiazepoxide (Librium) 25 mg PO Q6 CRISTINA PRN Reason: Taper Stop: 05/25/17 17:59 Hydromorphone HCl (Dilaudid) 2 mg IVP Q6H PRN PRN Reason: Pain, severe (8-10) Last Admin: 05/21/17 14:02 Dose: 2 mg Vancomycin/Sodium Chloride (Vancocin) 1 gm in 200 mls @ 133 mls/hr IVPB Q12H [facility]INA Stop: 05/25/17 22:01 Last Admin: 05/21/17 10:45 Dose: 133 mls/hr Piperacillin Sod/Tazobactam Sod (Zosyn 3.375 Gm Iv Premix) 3.375 gm in 50 mls @ 100 mls/hr IVPB Q6H CRISTINA Last Admin: 05/21/17 16:08 Dose: 100 mls/hr Sodium Chloride (Sodium Chloride 0.9%) 1,000 mls @ 100 mls/hr IV .Q10H CRISTINA Last Admin: 05/21/17 16:10 Dose: 100 mls/hr Lorazepam (Ativan) 1 mg IVP Q6H PRN PRN Reason: Anxiety Last Admin: 05/21/17 09:55 Dose: 1 mg Methadone HCl (Methadone) 5 mg PO DAILY [facility] Stop: 05/23/17 11:00 Physical Exam - Constitutional Appears: Toxic, Cachectic - Head Exam Head Exam: ATRAUMATIC, NORMAL INSPECTION, NORMOCEPHALIC - Eye Exam Eye Exam: EOMI, PERRL. absent: Scleral icterus - ENT Exam ENT Exam: Mucous Membranes Dry, Normal External Ear Exam - Neck Exam Neck exam: Negative for: Lymphadenopathy - Respiratory Exam Respiratory Exam: Decreased Breath Sounds, Rhonchi - Cardiovascular Exam Cardiovascular Exam: REGULAR RHYTHM, +S1, +S2 - Rectal Exam Rectal Exam: Deferred - Exam Exam: NORMAL INSPECTION - Extremities Exam Extremities exam: Positive for: pedal pulses present. Negative for: calf tenderness, pedal edema, tenderness - Back Exam Back exam: absent: CVA tenderness (L), CVA tenderness (R) - Neurological Exam Neurological exam: Alert, CN II-XII Intact, Oriented x3, Reflexes Normal - Psychiatric Exam Psychiatric exam: Normal Mood - Skin Skin Exam: Dry Additional comments: abscess left arm + Results - Vital Signs Recent Vital Signs: Last Vital Signs Temp 98.1 F 05/21/17 07:05 Pulse 108 H 05/21/17 09:48 Resp 18 05/21/17 07:05 BP 125/85 05/21/17 09:48 Pulse Ox 97 05/21/17 07:05 - Labs Result Diagrams: 05/20/17 09:20 05/21/17 13:22 Labs: Laboratory Results - last 24 hr 08/27/17 13:22 Sodium 134 Potassium 4.2 Chloride 98 Carbon Dioxide 23 Anion Gap 17 BUN 12 Creatinine 0.6 L Est GFR ( Amer) > 60 Est GFR (Non-Af Amer) > 60 Random Glucose 137 H Calcium 8.3 L Total Bilirubin 0.4 AST 91 H ALT 43 Alkaline Phosphatase 87 Total Protein 6.9 Albumin 2.9 L Globulin 4.0 H Albumin/Globulin Ratio 0.7 L Assessment & Plan (1) Alcohol abuse Status: Acute (2) Cellulitis and abscess of upper arm and forearm Status: Acute (3) IV drug abuse Status: Acute (4) COPD exacerbation Status: Acute (5) Cellulitis Status: Acute (6) Polysubstance (excluding opioids) dependence Status: Acute - Assessment and Plan (Free Text) Assessment: cont iv antibiotics possible or i and d
[2017-05-21] MEDS: Tmp-Smz 800 mg-160 mg DS Tab PO SCH (18:25)
[2017-05-22] MEDS: Piperacill/Tazo 3.375gm in Dex 3.375 GM/50 ML BAG IVPB SCH ×5 (04:16→22:29)
[2017-05-22] MEDS: Tmp-Smz 800 mg-160 mg DS Tab PO SCH ×2 (04:24→17:59)
[2017-05-22] MEDS: Sodium Chloride 0.9% 1,000 ML IV SCH ×3 (04:51→22:31)
[2017-05-22] MEDS ORDERED: Lidocaine 1% Inj (20ml) ONE (09:33)
[2017-05-22] MEDS ORDERED: Bupivacaine-Epi 0.25%-1:200,000 PF Inj ONE (09:33)
[2017-05-22] MEDS ORDERED: Lactated Ringer's 1,000 ML IV ONE ×2 (09:47→10:30)
[2017-05-22] MEDS ORDERED: Midazolam 2 MG/2 ML VIAL ONE (10:06)
--- NOTE | 2017-05-22 10:15 | CP.PCM.PN ---
Subjective - Date & Time of Evaluation Date of Evaluation: 05/22/17 Time of Evaluation: 07:05 - Subjective Subjective: PGY2 Resident - Medicine Progress Note This 41M with PMHx of IVDA, hep C, HIV, has not taken meds in 3 yrs - presents with progressively worsening LUE abscess x 1 week. He states that he noticed the abscess develop a few days after injecting heroin in the L arm. Abscess grew in size and pain increased in intensity. At time of admission, patient states that the pain is constant, made worse w. movement or when pressure is applied. He denied any drainage. He reported F/C and did have N/V. He denied VILCHIS/ blurred vision, no CP/palpitations, no SOB/cough, no diarrhea, no hematuria/ dysuira, no weakness/fatigue. Today 05/22, Patient seen and examined at bedside, resting comfortably. No overnight events per nursing. NPO for I&D of abscess. Reports regular BMs. Denies fever, chills, headache, changes in vision, chest pain, palpitations, dyspnea, cough, abdominal pain, nausea/vomiting, diarrhea/constipation, dysuria , urinary frequency, change in urinary stream, or any additional acute complaints. PMH: HIV, Hep C, arm abscess PSH: none Meds: none ALL: Tylenol Social: +Heroin/Cocaine - injects 15-20 bags of heroin daily, along with 1 bag of cocaine. She also reports of drinking 8-10 pints of vodka on a daily basis; Patient is Homeless Fhx: non-contributory Objective - Vital Signs/Intake and Output Vital Signs (last 24 hours): Temp Pulse Resp BP Pulse Ox 98.4 F 96 H 20 128/86 98 05/22/17 09:08 05/22/17 09:08 05/22/17 09:08 05/22/17 09:08 05/22/17 09:08 Intake and Output: 05/22/17 05/22/17 06:59 18:59 Intake Total 2420 Output Total 2300 Balance 120 - Medications Medications: Current Medications Al Hydrox/Mg Hydrox/Simethicone (Maalox 30 Ml) 30 ml PO Q6 PRN PRN Reason: Indigestion / Heartburn Last Admin: 05/21/17 16:08 Dose: 30 ml Chlordiazepoxide (Librium) 25 mg PO Q6 CRISTINA PRN Reason: Taper Stop: 05/25/17 17:59 Last Admin: 05/22/17 06:03 Dose: Not Given Hydromorphone HCl (Dilaudid) 2 mg IVP Q6H PRN PRN Reason: Pain, severe (8-10) Last Admin: 05/22/17 07:59 Dose: 2 mg Vancomycin/Sodium Chloride (Vancocin) 1 gm in 200 mls @ 133 mls/hr IVPB Q12H [facility] Stop: 05/25/17 22:01 Last Admin: 05/21/17 22:37 Dose: 133 mls/hr Piperacillin Sod/Tazobactam Sod (Zosyn 3.375 Gm Iv Premix) 3.375 gm in 50 mls @ 100 mls/hr IVPB Q6H [facility] Last Admin: 05/22/17 04:16 Dose: 100 mls/hr Sodium Chloride (Sodium Chloride 0.9%) 1,000 mls @ 100 mls/hr IV .Q10H [facility] Last Admin: 05/22/17 04:51 Dose: 100 mls/hr Lorazepam (Ativan) 1 mg IVP Q6H PRN PRN Reason: Anxiety Last Admin: 05/22/17 04:41 Dose: 1 mg Methadone HCl (Methadone) 5 mg PO DAILY [facility] Stop: 05/23/17 11:00 Last Admin: 05/22/17 09:10 Dose: 5 mg Trimethoprim/Sulfamethoxazole (Bactrim Ds Tab) 1 tab PO Q12H [facility] Last Admin: 05/22/17 04:24 Dose: 1 tab - Labs Labs: 05/21/17 13:22 PT 10.9 SECONDS (9.7-12.2) 05/20/17 09:20 INR 1.0 05/20/17 09:20 APTT 26 SECONDS (21-34) 05/20/17 09:20 - Additional Findings Additional findings: - Constitutional Appears: Toxic, Cachectic, No acute distress - Head Exam Head Exam: ATRAUMATIC, NORMAL INSPECTION, NORMOCEPHALIC - Eye Exam Eye Exam: EOMI, PERRL. absent: Scleral icterus - ENT Exam ENT Exam: Mucous Membranes Dry, Normal External Ear Exam - Neck Exam Neck exam: Negative for: Lymphadenopathy - Respiratory Exam Respiratory Exam: Decreased Breath Sounds, Rhonchi; absent: Wheezes, respiratory distress - Cardiovascular Exam Cardiovascular Exam: REGULAR RHYTHM, +S1, +S2 - Extremities Exam Extremities exam: Positive for: pedal pulses present. Negative for: calf tenderness, pedal edema, tenderness - Back Exam Back exam: absent: CVA tenderness (L), CVA tenderness (R) - Neurological Exam Neurological exam: Alert, CN II-XII Intact, Oriented x3, Reflexes Normal - Psychiatric Exam Psychiatric exam: Normal Mood - Skin Skin Exam: Warm, Dry Additional comments: +abscess left forearm Assessment and Plan - Assessment and Plan (Free Text) Assessment: Cellulitis and abscess of upper arm and forearm Status: Acute 05/22: OR today for I&D Surgery consult, Dr. Lowry, help appreciated - Continue Dilaudid 2mg IVP Q6H PRN pain ID consult, Dr. Morales, help appreciated - Continue Zosyn (started 05/20); Bactrim (started 05/21), Vanco (started 05/20) -BC negative since 05/20 Alcohol abuse Status: Acute Psych consult, Dr. Bailon, help appreciated - Librium when necessary; Librium taper - Folic acid/thiamine/multivitamin IV drug abuse Status: Acute Psych consult, Dr. Bailon, help appreciated - Methadone taper; Clonidine when necessary; Electrolyte Imbalance -Hypomagnesemia, Mg 1.2 - Mag sulfate x4bags, f/u am labs Prophylaxis - SCDs - Maalox Case discussed with attending. All medical management as per Dr. Prudence Lebron
[2017-05-22] MEDS ORDERED: HYDROmorphone 0.5 mg/0.5 ml ISec IVP PRN (10:21)
[2017-05-22] MEDS: Vancomycin 1 gm/NS 200 ml 1 GM/200 ML BAG IVPB SCH ×2 (10:35→22:30)
--- NOTE | 2017-05-22 10:42 | PCM.SURG1 ---
Surgeon's Initial Post Op Note - Surgeon's Notes Surgeon: Essence Zookeeper: PGY4, Haleigh MS3 Type of Anesthesia: IV Sedation Pre-Operative Diagnosis: L forearm abscess Operative Findings: L forearm abscess Post-Operative Diagnosis: L forearm abscess Operation Performed: I&D of L forearm abscess Specimen/Specimens Removed: Culture swab and culture tissue Estimated Blood Loss: EBL {In ML}: 15 Blood Products Given: N/A Drains Used: No Drains Post-Op Condition: Good Date of Surgery/Procedure: 05/22/17 Time of Surgery/Procedure: 10:00
[2017-05-22 10:53] LABS: BASO % 0.9 % (0.0-2.0); EOS # 0.1 K/uL (0.0-0.7); EOS % 2.9 % (0.0-4.0); HEMATOCRIT 29.1 % (35.0-51.0); LYMPH # 0.5 K/uL (1.0-4.3); LYMPH % 12.4 % (20.0-40.0); MEAN CELL VOLUME 85.7 fL (80.0-94.0); MEAN CORPUSCULAR HEMOGLOBIN 27.1 pg (27.0-31.0); MEAN CORPUSCULAR HGB CONC 31.6 g/dL (33.0-37.0); MEAN PLATELET VOLUME 8.8 fL (7.2-11.7); MONO # 0.4 K/uL (0.0-0.8); MONO % 10.1 % (0.0-10.0); NRBC % 0.1 % (0.0-2.0); RED CELL DISTRIBUTION WIDTH 18.8 % (11.5-14.5); WHITE BLOOD COUNT 4.4 K/uL (4.8-10.8)
[2017-05-22 11:13] LABS: CHLORIDE 97 mmol/L (98-107); POTASSIUM 4.9 mmol/L (3.6-5.2); SODIUM 134 mmol/L (132-148)
[2017-05-22 11:15] LABS: GFR AFRICAN-AMERICAN > 60
[2017-05-22 11:16] LABS: ALB/GLOB RATIO 0.7 (1.0-2.1); ALKALINE PHOSPHATASE 77 U/L (38-126); AST/SGOT 96 U/L (17-59); BILIRUBIN,TOTAL 0.5 mg/dL (0.2-1.3); BLOOD UREA NITROGEN 19 mg/dL (9-20); CALCIUM 8.6 mg/dl (8.6-10.4); CARBON DIOXIDE 26 mmol/L (22-30); GLUCOSE,RANDOM 68 mg/dL (75-110); PHOSPHOROUS 3.4 mg/dL (2.5-4.5)
[2017-05-22 11:17] LABS: ALT/SGPT 44 U/L (21-72); MAGNESIUM 1.2 mg/dL (1.6-2.3)
[2017-05-22 12:07] VITALS: RESP 20
[2017-05-22] MEDS ORDERED: Neostigmine Methylsulfate 3mg/3ml Syringe IV ONE (13:34)
[2017-05-22] MEDS: Magnesium Sulfate 1 gm in D5W 1 GM/100 ML BAG IVPB SCH ×4 (16:34→18:01)
--- NOTE | 2017-05-22 18:58 | CP.PCM.PN ---
Subjective - Date & Time of Evaluation Date of Evaluation: 05/22/17 Time of Evaluation: 12:00 - Subjective Subjective: clinically same Objective - Vital Signs/Intake and Output Vital Signs (last 24 hours): Temp Pulse Resp BP Pulse Ox 98.9 F 93 H 20 112/70 99 05/22/17 15:18 05/22/17 15:18 05/22/17 15:18 05/22/17 15:18 05/22/17 15:18 Intake and Output: 05/22/17 05/22/17 06:59 18:59 Intake Total 2420 1400 Output Total 2300 Balance 120 1400 - Medications Medications: Current Medications Al Hydrox/Mg Hydrox/Simethicone (Maalox 30 Ml) 30 ml PO Q6 PRN PRN Reason: Indigestion / Heartburn Last Admin: 05/21/17 16:08 Dose: 30 ml Chlordiazepoxide (Librium) 25 mg PO TID CRISTINA PRN Reason: Taper Stop: 05/25/17 17:59 Last Admin: 05/22/17 17:59 Dose: 25 mg Hydromorphone HCl (Dilaudid) 2 mg IVP Q6H PRN PRN Reason: Pain, severe (8-10) Last Admin: 05/22/17 14:01 Dose: 2 mg Vancomycin/Sodium Chloride (Vancocin) 1 gm in 200 mls @ 133 mls/hr IVPB Q12H [facility] Stop: 05/25/17 22:01 Last Admin: 05/22/17 10:35 Dose: 200 mls Piperacillin Sod/Tazobactam Sod (Zosyn 3.375 Gm Iv Premix) 3.375 gm in 50 mls @ 100 mls/hr IVPB Q6H [facility] Last Admin: 05/22/17 16:00 Dose: 100 mls/hr Sodium Chloride (Sodium Chloride 0.9%) 1,000 mls @ 100 mls/hr IV .Q10H [facility] Last Admin: 05/22/17 04:51 Dose: 100 mls/hr Lorazepam (Ativan) 1 mg IVP Q6H PRN PRN Reason: Anxiety Last Admin: 05/22/17 18:14 Dose: 1 mg Methadone HCl (Methadone) 5 mg PO DAILY [facility] Stop: 05/23/17 11:00 Last Admin: 05/22/17 09:10 Dose: 5 mg Trimethoprim/Sulfamethoxazole (Bactrim Ds Tab) 1 tab PO Q12H [facility]STINA Last Admin: 05/22/17 17:59 Dose: 1 tab - Labs Labs: 05/22/17 10:26 05/22/17 10:26 PT 10.9 SECONDS (9.7-12.2) 05/20/17 09:20 INR 1.0 05/20/17 09:20 APTT 26 SECONDS (21-34) 05/20/17 09:20 - Constitutional Appears: Well - Head Exam Head Exam: ATRAUMATIC, NORMAL INSPECTION, NORMOCEPHALIC - Eye Exam Eye Exam: EOMI, Normal appearance, PERRL Pupil Exam: NORMAL ACCOMODATION, PERRL - ENT Exam ENT Exam: Mucous Membranes Moist, Normal Exam - Neck Exam Neck Exam: Full ROM, Normal Inspection. absent: Lymphadenopathy - Respiratory Exam Respiratory Exam: Decreased Breath Sounds - Cardiovascular Exam Cardiovascular Exam: REGULAR RHYTHM, +S1, +S2 - GI/Abdominal Exam GI & Abdominal Exam: Soft, Diminished Bowel Sounds - Rectal Exam Rectal Exam: Deferred Assessment and Plan (1) Alcohol abuse Status: Acute (2) Cellulitis and abscess of upper arm and forearm Status: Acute (3) IV drug abuse Status: Acute (4) Asthma Status: Acute (5) Bronchitis Status: Acute (6) COPD exacerbation Status: Acute (7) Cellulitis Status: Acute (8) Chest pain Status: Acute (9) Chest pain Status: Acute (10) Cocaine abuse Status: Acute (11) Contusion Status: Acute (12) Drug abuse Status: Acute (13) Foot pain, bilateral Status: Acute (14) Homeless single person Status: Acute (15) Knee contusion Status: Acute (16) Leg pain Status: Acute (17) Pharyngitis Status: Acute (18) Polysubstance (excluding opioids) dependence Status: Acute (19) Prophylactic measure Status: Acute (20) Seizure Status: Acute (21) Unable to ambulate Status: Acute (22) Weakness of both lower extremities Status: Acute (23) Withdrawal symptoms, alcohol Status: Acute
--- NOTE | 2017-05-22 21:03 | OP ---
PROCEDURE DATE: 05/22/2017 PREOPERATIVE DIAGNOSIS: Left forearm cellulitis and possible abscess. POSTOPERATIVE DIAGNOSIS: Left forearm cellulitis and possible abscess. PROCEDURES DONE: 1. Incision and drainage of left forearm abscess. 2. Excisional debridement of the wound, 4 x 2 cm size. SURGEON: Dr. Lowry. SOFTWARE TESTING SPECIALIST: Khris Thomas, PGY4 resident. TYPE OF ANESTHESIA: General endotracheal tube anesthesia. ESTIMATED BLOOD LOSS: Around 10 mL drained in pathology. The first was sent for the culture and sensitivity with debrided tissue. COMPLICATIONS: None. INTRAOPERATIVE FINDINGS: The patient has approximately 2 x 2 cm abscess cavity with inflamed thickened tissue surrounding the abscess, and on intraoperative steps, this 41-year-old was diagnosed with left forearm cellulitis and abscess and the patient was consented for the incision and drainage. The patient was brought to the OR, placed on the operating table. The left forearm was prepped and draped and local anesthesia was injected after induction of the sedation, and vertical 4 cm incision was made after incising skin and subcutaneous tissue. The abscess cavity was entered and approximately 5 mL of pus was drained and the cavity was debrided with blunt and sharp dissection and hemostasis was achieved, cavity was irrigated and packed without a warm packing and dry sterile dressing was applied. The patient tolerated procedure well. Count of instrument was correct. There was no apparent complications. Elpidio Lowry MD
[2017-05-23] MEDS: Aluminum Hydroxide/Magnesium Hydroxide Susp (30 mL) PO PRN ×3 (02:09→18:27)
[2017-05-23] MEDS: Piperacill/Tazo 3.375gm in Dex 3.375 GM/50 ML BAG IVPB SCH ×4 (03:42→21:32)
[2017-05-23] MEDS: Tmp-Smz 800 mg-160 mg DS Tab PO SCH ×2 (04:35→16:02)
[2017-05-23 07:23] LABS: BASO # 0.1 K/uL (0.0-0.2); EOS # 0.2 K/uL (0.0-0.7); EOS % 3.5 % (0.0-4.0); HEMATOCRIT 27.5 % (35.0-51.0); LYMPH # 0.7 K/uL (1.0-4.3); LYMPH % 13.3 % (20.0-40.0); MEAN CELL VOLUME 85.2 fL (80.0-94.0); MEAN CORPUSCULAR HEMOGLOBIN 27.2 pg (27.0-31.0); MEAN CORPUSCULAR HGB CONC 31.9 g/dL (33.0-37.0); MEAN PLATELET VOLUME 8.5 fL (7.2-11.7); MONO # 0.5 K/uL (0.0-0.8); MONO % 10.9 % (0.0-10.0); NRBC % 0.1 % (0.0-2.0); RED CELL DISTRIBUTION WIDTH 18.6 % (11.5-14.5); WHITE BLOOD COUNT 4.9 K/uL (4.8-10.8)
--- NOTE | 2017-05-23 07:30 | CP.PCM.PN ---
Subjective - Date & Time of Evaluation Date of Evaluation: 05/23/17 Time of Evaluation: 11:39 - Subjective Subjective: PGY 2 Medicine Note- Dr. Lebron's service Pt seen and examined with complaints of excruciating pain. Nursing reported that patient was crying about being in pain. Patient denies subjective fevers or chills, nausea, vomiting, diarrhea or constipation at this time. Objective - Vital Signs/Intake and Output Vital Signs (last 24 hours): Temp Pulse Resp BP Pulse Ox 98.2 F 92 H 20 115/69 98 05/23/17 04:05 05/23/17 04:05 05/23/17 04:05 05/23/17 04:05 05/23/17 04:05 Intake and Output: 05/23/17 05/23/17 06:59 18:59 Intake Total 2430 Output Total 2450 Balance -20 - Medications Medications: Current Medications Al Hydrox/Mg Hydrox/Simethicone (Maalox 30 Ml) 30 ml PO Q6 PRN PRN Reason: Indigestion / Heartburn Last Admin: 05/23/17 02:09 Dose: 30 ml Chlordiazepoxide (Librium) 25 mg PO TID [facility]STINA PRN Reason: Taper Stop: 05/25/17 17:59 Last Admin: 05/22/17 17:59 Dose: 25 mg Hydromorphone HCl (Dilaudid) 2 mg IVP Q6H PRN PRN Reason: Pain, severe (8-10) Last Admin: 05/23/17 02:02 Dose: 2 mg Vancomycin/Sodium Chloride (Vancocin) 1 gm in 200 mls @ 133 mls/hr IVPB Q12H [facility] Stop: 05/25/17 22:01 Last Admin: 05/22/17 22:30 Dose: 133 mls/hr Piperacillin Sod/Tazobactam Sod (Zosyn 3.375 Gm Iv Premix) 3.375 gm in 50 mls @ 100 mls/hr IVPB Q6H [facility]STINA Last Admin: 05/23/17 03:42 Dose: 100 mls/hr Sodium Chloride (Sodium Chloride 0.9%) 1,000 mls @ 100 mls/hr IV .Q10H [facility] Last Admin: 05/22/17 22:31 Dose: 100 mls/hr Lorazepam (Ativan) 1 mg IVP Q6H PRN PRN Reason: Anxiety Last Admin: 05/23/17 04:41 Dose: 1 mg Methadone HCl (Methadone) 5 mg PO DAILY [facility] Stop: 05/23/17 11:00 Last Admin: 05/22/17 09:10 Dose: 5 mg Trimethoprim/Sulfamethoxazole (Bactrim Ds Tab) 1 tab PO Q12H [facility] Last Admin: 05/23/17 04:35 Dose: 1 tab - Labs Labs: 05/23/17 07:00 05/22/17 10:26 PT 10.9 SECONDS (9.7-12.2) 05/20/17 09:20 INR 1.0 05/20/17 09:20 APTT 26 SECONDS (21-34) 05/20/17 09:20 - Constitutional Appears: Non-toxic, No Acute Distress, Unkempt - Head Exam Head Exam: ATRAUMATIC, NORMAL INSPECTION, NORMOCEPHALIC - Eye Exam Eye Exam: EOMI, Normal appearance, PERRL Pupil Exam: NORMAL ACCOMODATION, PERRL - ENT Exam ENT Exam: Mucous Membranes Moist - Neck Exam Neck Exam: Full ROM - Respiratory Exam Respiratory Exam: NORMAL BREATHING PATTERN - Cardiovascular Exam Cardiovascular Exam: +S1, +S2 - GI/Abdominal Exam GI & Abdominal Exam: Soft, Normal Bowel Sounds - Extremities Exam Extremities Exam: Full ROM Additional comments: left arm dressing in place, c/d/i - Back Exam Back Exam: Full ROM - Neurological Exam Neurological Exam: Alert, Awake, Oriented x3 - Psychiatric Exam Psychiatric exam: Normal Affect, Normal Mood - Skin Skin Exam: Dry, Warm Assessment and Plan - Assessment and Plan (Free Text) Assessment: Cellulitis and abscess of upper arm and forearm Status: Acute 05/22: OR today for I&D Surgery consult, Dr. Lowry- F/U recommendations -Dressing changes per surgery - Continue Dilaudid 2mg IVP Q6H PRN pain. Caution dosage as patient has history of IVDA dependency -ID consult, Dr. Morales, help appreciated - Continue Zosyn (started 05/20); Bactrim (started 05/21), Vanco (started 05/20) -F/U with ID regarding length of abx administration -Florastor BID -BC negative since 05/20 -Wound cultures negative to date Alcohol abuse Status: Acute Psych consult, Dr. Bailon, help appreciated - Librium when necessary; Librium taper - Folic acid/thiamine/multivitamin IV drug abuse Status: Acute Psych consult, Dr. Bailon, help appreciated - Methadone taper; Clonidine when necessary; Prophylaxis - SCDs - Pepcid 20 mg PO BID Case discussed with attending. All medical management as per Dr. Prudence Lebron
[2017-05-23 07:38] LABS: CHLORIDE 98 mmol/L (98-107); SODIUM 133 mmol/L (132-148)
[2017-05-23 07:41] LABS: ALB/GLOB RATIO 0.7 (1.0-2.1); ALKALINE PHOSPHATASE 80 U/L (38-126); AST/SGOT 119 U/L (17-59); BILIRUBIN,TOTAL 0.5 mg/dL (0.2-1.3); BLOOD UREA NITROGEN 18 mg/dL (9-20); CARBON DIOXIDE 26 mmol/L (22-30); GFR AFRICAN-AMERICAN > 60; GLUCOSE,RANDOM 85 mg/dL (75-110); PHOSPHOROUS 3.7 mg/dL (2.5-4.5); TOTAL PROTEIN 6.9 g/dL (6.3-8.3)
[2017-05-23 07:42] LABS: ALT/SGPT 56 U/L (21-72); CALCIUM 8.4 mg/dl (8.6-10.4); MAGNESIUM 1.7 mg/dL (1.6-2.3); POTASSIUM 5.4 mmol/L (3.6-5.2)
--- NOTE | 2017-05-23 08:44 | CP.PCM.PN ---
<Juvencio George - Last Filed: 05/23/17 10:59> Subjective - Date & Time of Evaluation Date of Evaluation: 05/23/17 Time of Evaluation: 08:39 - Subjective Subjective: SURGERY NOTE FOR DR. LOWRY 41M seen and examined at bedside. Patient continues to complain of pain at the drainage site. NAEON. Objective - Vital Signs/Intake and Output Vital Signs (last 24 hours): Temp Pulse Resp BP Pulse Ox 97.8 F 85 20 127/68 96 05/23/17 07:15 05/23/17 07:15 05/23/17 07:15 05/23/17 07:15 05/23/17 07:15 Intake and Output: 05/23/17 05/23/17 06:59 18:59 Intake Total 2430 Output Total 2450 Balance -20 - Medications Medications: Current Medications Al Hydrox/Mg Hydrox/Simethicone (Maalox 30 Ml) 30 ml PO Q6 PRN PRN Reason: Indigestion / Heartburn Last Admin: 05/23/17 02:09 Dose: 30 ml Chlordiazepoxide (Librium) 25 mg PO TID CRISTINA PRN Reason: Taper Stop: 05/25/17 17:59 Last Admin: 05/22/17 17:59 Dose: 25 mg Hydromorphone HCl (Dilaudid) 2 mg IVP Q6H PRN PRN Reason: Pain, severe (8-10) Last Admin: 05/23/17 02:02 Dose: 2 mg Vancomycin/Sodium Chloride (Vancocin) 1 gm in 200 mls @ 133 mls/hr IVPB Q12H [facility] Stop: 05/25/17 22:01 Last Admin: 05/22/17 22:30 Dose: 133 mls/hr Piperacillin Sod/Tazobactam Sod (Zosyn 3.375 Gm Iv Premix) 3.375 gm in 50 mls @ 100 mls/hr IVPB Q6H [facility] Last Admin: 05/23/17 03:42 Dose: 100 mls/hr Sodium Chloride (Sodium Chloride 0.9%) 1,000 mls @ 100 mls/hr IV .Q10H [facility] Last Admin: 05/22/17 22:31 Dose: 100 mls/hr Lorazepam (Ativan) 1 mg IVP Q6H PRN PRN Reason: Anxiety Last Admin: 05/23/17 04:41 Dose: 1 mg Methadone HCl (Methadone) 5 mg PO DAILY [facility] Stop: 05/23/17 11:00 Last Admin: 05/22/17 09:10 Dose: 5 mg Trimethoprim/Sulfamethoxazole (Bactrim Ds Tab) 1 tab PO Q12H [facility] Last Admin: 05/23/17 04:35 Dose: 1 tab - Labs Labs: 05/23/17 07:00 05/23/17 07:00 PT 10.9 SECONDS (9.7-12.2) 05/20/17 09:20 INR 1.0 05/20/17 09:20 APTT 26 SECONDS (21-34) 05/20/17 09:20 - Constitutional Appears: Non-toxic, No Acute Distress - Respiratory Exam Respiratory Exam: Clear to Ausculation Bilateral, NORMAL BREATHING PATTERN - Cardiovascular Exam Cardiovascular Exam: REGULAR RHYTHM, +S1, +S2 - Extremities Exam Additional comments: Left arm dressing in place. clean dry intact. - Neurological Exam Neurological Exam: Alert, Awake - Skin Skin Exam: Dry, Intact, Normal Color, Warm Assessment and Plan - Assessment and Plan (Free Text) Assessment: 41M s/p incision and drainage of left arm abscess POD1 Plan: - Monitor I&D site - Daily dressing changes - continue Abx Further recs discuss with Dr. Essence George PGY2 <Elpidio Lowry - Last Filed: 05/24/17 19:27> Objective - Vital Signs/Intake and Output Vital Signs (last 24 hours): Temp Pulse Resp BP Pulse Ox 97.8 F 90 20 125/88 98 05/24/17 15:07 05/24/17 15:07 05/24/17 15:07 05/24/17 15:07 05/24/17 15:07 Intake and Output: 05/24/17 05/25/17 18:59 06:59 Intake Total 1200 Balance 1200 - Labs Labs: 05/24/17 11:30 05/24/17 11:30 PT 10.9 SECONDS (9.7-12.2) 05/20/17 09:20 INR 1.0 05/20/17 09:20 APTT 26 SECONDS (21-34) 05/20/17 09:20 Attending/Attestation - Attestation I have personally seen and examined this patient.: Yes I have fully participated in the care of the patient.: Yes I have reviewed all pertinent clinical information, including history, physical exam and plan: Yes Notes (Text): 05/24/17 19:27 Pt was seen and examined at bedside Agree with above note and assessment
[2017-05-23] MEDS: Sodium Chloride 0.9% 1,000 ML IV SCH ×3 (09:35→18:00)
[2017-05-23] MEDS: Vancomycin 1 gm/NS 200 ml 1 GM/200 ML BAG IVPB SCH ×2 (12:21→21:33)
--- NOTE | 2017-05-23 16:08 | CP.PCM.PN ---
Subjective - Date & Time of Evaluation Date of Evaluation: 05/23/17 Time of Evaluation: 12:00 - Subjective Subjective: clinically same Objective - Vital Signs/Intake and Output Vital Signs (last 24 hours): Temp Pulse Resp BP Pulse Ox 97.8 F 85 20 127/68 96 05/23/17 07:15 05/23/17 07:15 05/23/17 07:15 05/23/17 07:15 05/23/17 07:15 Intake and Output: 05/23/17 05/23/17 06:59 18:59 Intake Total 2430 Output Total 2450 Balance -20 - Medications Medications: Current Medications Al Hydrox/Mg Hydrox/Simethicone (Maalox 30 Ml) 30 ml PO Q6 PRN PRN Reason: Indigestion / Heartburn Last Admin: 05/23/17 12:27 Dose: 30 ml Chlordiazepoxide (Librium) 25 mg PO TID CRISTINA PRN Reason: Taper Stop: 05/25/17 17:59 Last Admin: 05/23/17 13:15 Dose: 25 mg Hydromorphone HCl (Dilaudid) 2 mg IVP Q6H PRN PRN Reason: Pain, severe (8-10) Last Admin: 05/23/17 15:28 Dose: 2 mg Vancomycin/Sodium Chloride (Vancocin) 1 gm in 200 mls @ 133 mls/hr IVPB Q12H [facility] Stop: 05/25/17 22:01 Last Admin: 05/23/17 12:21 Dose: 133 mls/hr Piperacillin Sod/Tazobactam Sod (Zosyn 3.375 Gm Iv Premix) 3.375 gm in 50 mls @ 100 mls/hr IVPB Q6H [facility] Last Admin: 05/23/17 16:02 Dose: 100 mls/hr Sodium Chloride (Sodium Chloride 0.9%) 1,000 mls @ 100 mls/hr IV .Q10H [facility] Last Admin: 05/23/17 12:28 Dose: 100 mls/hr Lorazepam (Ativan) 1 mg IVP Q6H PRN PRN Reason: Anxiety Last Admin: 05/23/17 12:17 Dose: 1 mg Trimethoprim/Sulfamethoxazole (Bactrim Ds Tab) 1 tab PO Q12H [facility] Last Admin: 05/23/17 16:02 Dose: 1 tab - Labs Labs: 05/23/17 07:00 05/23/17 07:00 PT 10.9 SECONDS (9.7-12.2) 05/20/17 09:20 INR 1.0 05/20/17 09:20 APTT 26 SECONDS (21-34) 05/20/17 09:20 - Constitutional Appears: Well - Head Exam Head Exam: ATRAUMATIC, NORMAL INSPECTION, NORMOCEPHALIC - Eye Exam Eye Exam: EOMI, Normal appearance, PERRL Pupil Exam: NORMAL ACCOMODATION, PERRL - ENT Exam ENT Exam: Mucous Membranes Moist, Normal Exam - Neck Exam Neck Exam: Full ROM, Normal Inspection. absent: Lymphadenopathy - Respiratory Exam Respiratory Exam: Decreased Breath Sounds - Cardiovascular Exam Cardiovascular Exam: REGULAR RHYTHM, +S1, +S2 - GI/Abdominal Exam GI & Abdominal Exam: Soft, Diminished Bowel Sounds - Rectal Exam Rectal Exam: Deferred Assessment and Plan (1) Alcohol abuse Status: Acute (2) Cellulitis and abscess of upper arm and forearm Status: Acute (3) IV drug abuse Status: Acute (4) Asthma Status: Acute (5) Bronchitis Status: Acute (6) COPD exacerbation Status: Acute (7) Cellulitis Status: Acute (8) Chest pain Status: Acute (9) Chest pain Status: Acute (10) Cocaine abuse Status: Acute (11) Contusion Status: Acute (12) Drug abuse Status: Acute (13) Foot pain, bilateral Status: Acute (14) Homeless single person Status: Acute (15) Knee contusion Status: Acute (16) Leg pain Status: Acute (17) Pharyngitis Status: Acute (18) Polysubstance (excluding opioids) dependence Status: Acute (19) Prophylactic measure Status: Acute (20) Seizure Status: Acute (21) Unable to ambulate Status: Acute (22) Weakness of both lower extremities Status: Acute (23) Withdrawal symptoms, alcohol Status: Acute
[2017-05-24 01:41] VITALS: O2SAT 98
[2017-05-24] MEDS: Aluminum Hydroxide/Magnesium Hydroxide Susp (30 mL) PO PRN ×2 (02:01→09:34)
[2017-05-24] MEDS: Sodium Chloride 0.9% 1,000 ML IV SCH ×2 (02:02→13:24)
[2017-05-24] MEDS: Piperacill/Tazo 3.375gm in Dex 3.375 GM/50 ML BAG IVPB SCH ×3 (03:37→15:17)
[2017-05-24] MEDS: Tmp-Smz 800 mg-160 mg DS Tab PO SCH (05:09)
--- NOTE | 2017-05-24 09:24 | CP.PCM.PN ---
Subjective - Date & Time of Evaluation Date of Evaluation: 05/24/17 Time of Evaluation: 09:21 - Subjective Subjective: Patient was seen and examined at bedside in no acute distress. Patient reports having discomfort at the surgical site, but otherwise has no complaints. Patient denies chest pain, abdominal pain, leg pain, n/v/d/c/f. Objective - Vital Signs/Intake and Output Vital Signs (last 24 hours): Temp Pulse Resp BP Pulse Ox 98.1 F 92 H 20 131/80 98 05/24/17 07:20 05/24/17 07:20 05/24/17 07:20 05/24/17 07:20 05/24/17 07:20 Intake and Output: 05/24/17 05/24/17 06:59 18:59 Intake Total 2480 Output Total 1575 Balance 905 - Medications Medications: Current Medications Al Hydrox/Mg Hydrox/Simethicone (Maalox 30 Ml) 30 ml PO Q6 PRN PRN Reason: Indigestion / Heartburn Last Admin: 05/24/17 02:01 Dose: 30 ml Chlordiazepoxide (Librium) 25 mg PO BID [facility]INA PRN Reason: Taper Stop: 05/25/17 17:59 Last Admin: 05/23/17 18:28 Dose: 25 mg Famotidine (Pepcid) 20 mg PO BID [facility] Hydromorphone HCl (Dilaudid) 2 mg IVP Q6H PRN PRN Reason: Pain, severe (8-10) Last Admin: 05/24/17 03:33 Dose: 2 mg Vancomycin/Sodium Chloride (Vancocin) 1 gm in 200 mls @ 133 mls/hr IVPB Q12H [facility] Stop: 05/25/17 22:01 Last Admin: 05/23/17 21:33 Dose: 133 mls/hr Piperacillin Sod/Tazobactam Sod (Zosyn 3.375 Gm Iv Premix) 3.375 gm in 50 mls @ 100 mls/hr IVPB Q6H [facility] Last Admin: 05/24/17 03:37 Dose: 100 mls/hr Sodium Chloride (Sodium Chloride 0.9%) 1,000 mls @ 100 mls/hr IV .Q10H [facility] Last Admin: 05/24/17 02:02 Dose: 100 mls/hr Lorazepam (Ativan) 1 mg IVP Q6H PRN PRN Reason: Anxiety Last Admin: 05/24/17 08:10 Dose: 1 mg Saccharomyces Boulardii (Florastor) 250 mg PO BID [facility] Trimethoprim/Sulfamethoxazole (Bactrim Ds Tab) 1 tab PO Q12H [facility] Last Admin: 05/24/17 05:09 Dose: 1 tab - Labs Labs: 05/23/17 07:00 05/23/17 07:00 PT 10.9 SECONDS (9.7-12.2) 05/20/17 09:20 INR 1.0 05/20/17 09:20 APTT 26 SECONDS (21-34) 05/20/17 09:20 - Head Exam Head Exam: ATRAUMATIC, NORMAL INSPECTION - Eye Exam Eye Exam: EOMI, Normal appearance - ENT Exam ENT Exam: Mucous Membranes Moist - Respiratory Exam Respiratory Exam: Clear to Ausculation Bilateral, NORMAL BREATHING PATTERN. absent: Rales, Rhonchi, Wheezes - Cardiovascular Exam Cardiovascular Exam: REGULAR RHYTHM, +S1, +S2 - GI/Abdominal Exam GI & Abdominal Exam: Soft, Normal Bowel Sounds. absent: Distended, Firm, Tenderness - Extremities Exam Extremities Exam: absent: Pedal Edema, Tenderness - Neurological Exam Neurological Exam: Alert, Awake, Oriented x3 - Psychiatric Exam Psychiatric exam: Normal Affect, Normal Mood - Skin Skin Exam: Dry, Intact, Normal Color, Warm Additional comments: Incision on LUE clean, no erythema or drainage. Assessment and Plan - Assessment and Plan (Free Text) Assessment: 41 year old male s/p incision and drainage of abscess on left upper extremity. - Dressing and packing changed today. - Consulted wound care for packing change - Continue antibiotics and daily dressing changes - Continue medical management as per hospitalist team.
[2017-05-24] MEDS: Vancomycin 1 gm/NS 200 ml 1 GM/200 ML BAG IVPB SCH (09:37)
[2017-05-24] MEDS ORDERED: Saccharomyces Boulardi 250 mg Cap PO SCH (10:00)
[2017-05-24 11:40] LABS: BASO % 0.9 % (0.0-2.0); EOS # 0.1 K/uL (0.0-0.7); EOS % 2.3 % (0.0-4.0); HEMATOCRIT 28.5 % (35.0-51.0); LYMPH # 0.6 K/uL (1.0-4.3); LYMPH % 11.6 % (20.0-40.0); MEAN CELL VOLUME 85.1 fL (80.0-94.0); MEAN CORPUSCULAR HEMOGLOBIN 27.3 pg (27.0-31.0); MEAN CORPUSCULAR HGB CONC 32.1 g/dL (33.0-37.0); MEAN PLATELET VOLUME 8.6 fL (7.2-11.7); MONO # 0.5 K/uL (0.0-0.8); MONO % 9.1 % (0.0-10.0); RED CELL DISTRIBUTION WIDTH 18.5 % (11.5-14.5); WHITE BLOOD COUNT 5.6 K/uL (4.8-10.8)
[2017-05-24 11:50] LABS: CHLORIDE 95 mmol/L (98-107); SODIUM 133 mmol/L (132-148)
[2017-05-24 11:52] LABS: BILIRUBIN,TOTAL 0.3 mg/dL (0.2-1.3); CARBON DIOXIDE 27 mmol/L (22-30); GFR AFRICAN-AMERICAN > 60
[2017-05-24 11:53] LABS: ALB/GLOB RATIO 0.7 (1.0-2.1); ALKALINE PHOSPHATASE 84 U/L (38-126); ALT/SGPT 86 U/L (21-72); AST/SGOT 164 U/L (17-59); BLOOD UREA NITROGEN 17 mg/dL (9-20); CALCIUM 8.9 mg/dl (8.6-10.4); GLUCOSE,RANDOM 92 mg/dL (75-110); PHOSPHOROUS 4.1 mg/dL (2.5-4.5); TOTAL PROTEIN 7.3 g/dL (6.3-8.3)
[2017-05-24 11:54] LABS: MAGNESIUM 1.6 mg/dL (1.6-2.3)
[2017-05-24 11:55] LABS: POTASSIUM 5.4 mmol/L (3.6-5.2)
[2017-05-24] MEDS ORDERED: Sod Polystyrene Sulf 15 gm/60 ml Oral Susp PO ONE (13:17)
--- NOTE | 2017-05-24 13:26 | CP.PCM.PN ---
Subjective - Date & Time of Evaluation Date of Evaluation: 05/24/17 Time of Evaluation: 13:25 - Subjective Subjective: Progress note for Dr. Lebron's service. Pt seen/examined at bedside. No acute distress but patient seems anxious/ uncomfortable. He is requesting stronger doses of pain meds and repeatedly states he is a heroin addict and alcoholic. Says there is pain in his arm. No fevers, chills, vomiting, diarrhea. Objective - Vital Signs/Intake and Output Vital Signs (last 24 hours): Temp Pulse Resp BP Pulse Ox 98.1 F 92 H 20 131/80 98 05/24/17 07:20 05/24/17 07:20 05/24/17 07:20 05/24/17 07:20 05/24/17 07:20 Intake and Output: 05/24/17 05/24/17 06:59 18:59 Intake Total 2480 Output Total 1575 Balance 905 - Medications Medications: Current Medications Al Hydrox/Mg Hydrox/Simethicone (Maalox 30 Ml) 30 ml PO Q6 PRN PRN Reason: Indigestion / Heartburn Last Admin: 05/24/17 09:34 Dose: 30 ml Chlordiazepoxide (Librium) 25 mg PO BID [facility] PRN Reason: Taper Stop: 05/25/17 17:59 Last Admin: 05/24/17 09:34 Dose: 25 mg Famotidine (Pepcid) 20 mg PO BID [facility] Last Admin: 05/24/17 09:34 Dose: 20 mg Hydromorphone HCl (Dilaudid) 2 mg IVP Q6H PRN PRN Reason: Pain, severe (8-10) Last Admin: 05/24/17 09:37 Dose: 2 mg Vancomycin/Sodium Chloride (Vancocin) 1 gm in 200 mls @ 133 mls/hr IVPB Q12H [facility] Stop: 05/25/17 22:01 Last Admin: 05/24/17 09:37 Dose: 133 mls/hr Piperacillin Sod/Tazobactam Sod (Zosyn 3.375 Gm Iv Premix) 3.375 gm in 50 mls @ 100 mls/hr IVPB Q6H [facility] Last Admin: 05/24/17 09:36 Dose: 100 mls/hr Sodium Chloride (Sodium Chloride 0.9%) 1,000 mls @ 100 mls/hr IV .Q10H [facility] Last Admin: 05/24/17 02:02 Dose: 100 mls/hr Lorazepam (Ativan) 1 mg IVP Q6H PRN PRN Reason: Anxiety Last Admin: 05/24/17 08:10 Dose: 1 mg Saccharomyces Boulardii (Florastor) 250 mg PO BID [facility] Last Admin: 05/24/17 09:34 Dose: 250 mg Trimethoprim/Sulfamethoxazole (Bactrim Ds Tab) 1 tab PO Q12H [facility] Last Admin: 05/24/17 05:09 Dose: 1 tab - Labs Labs: 05/24/17 11:30 05/24/17 11:30 PT 10.9 SECONDS (9.7-12.2) 05/20/17 09:20 INR 1.0 05/20/17 09:20 APTT 26 SECONDS (21-34) 05/20/17 09:20 - Constitutional Appears: Non-toxic, No Acute Distress, Older Than Stated Age, Cachectic - Head Exam Head Exam: ATRAUMATIC, NORMAL INSPECTION, NORMOCEPHALIC - Eye Exam Eye Exam: EOMI - ENT Exam ENT Exam: Mucous Membranes Moist - Neck Exam Neck Exam: Full ROM, Normal Inspection - Respiratory Exam Respiratory Exam: NORMAL BREATHING PATTERN. absent: Respiratory Distress - Cardiovascular Exam Cardiovascular Exam: +S1, +S2 - GI/Abdominal Exam GI & Abdominal Exam: Soft, Normal Bowel Sounds. absent: Tenderness - Extremities Exam Extremities Exam: Full ROM. absent: Normal Inspection Additional comments: abscess left arm, dressing clean dry intact - Neurological Exam Neurological Exam: Alert, Awake, CN II-XII Intact - Psychiatric Exam Psychiatric exam: Anxious, Flat Affect - Skin Skin Exam: Dry, Intact, Normal Color, Warm Assessment and Plan - Assessment and Plan (Free Text) Assessment: This is a 41 year old male with pmh of IV drug abuse and alcoholism presenting with cellulitis and abscess of upper left arm/forearm Cellulitis and abscess of upper arm and forearm s/p OR I/D of abscess Surgery consult, Dr. Lowry- F/U recommendations -Dressing changes per surgery - Continue Dilaudid 2mg IVP Q6H PRN pain. Caution dosage as patient has history of IV drug abuse dependency -ID consult, Dr. Morales, help appreciated - Continue Zosyn (started 05/20); Bactrim (started 05/21), Vanco (started 05/20) -F/U with ID regarding length of abx administration -Florastor BID -Blood cultures have been negative -Wound cultures negative to date Alcohol abuse Psych consult, Dr. Bailon, help appreciated - Librium when necessary; Librium taper - Folic acid/thiamine/multivitamin IV drug abuse Psych consult, Dr. Bailon, help appreciated Prophylaxis - SCDs - Pepcid 20 mg PO BID Case discussed with attending. All medical management as per Dr. Prudence Lebron
[2017-05-24 15:59] VITALS: BP 125/88; PULSE 90; TEMP 97.8
== END 2017-05-24 17:10 | disposition home or self-care (01) | DRG 571 ==
LOC: C.ER 07:34 → C.9E 11:33 → C.6T 12:08
PROVIDERS: ADMIT Internal Medicine Nephrology; ATTEND Internal Medicine Nephrology
PROC: 0HBEXZZ Excision of Left Lower Arm Skin, External Approach (ICD-10-PCS; principal; 2017-05-20)
PROC: HZ2ZZZZ Detoxification Services for Substance Abuse Treatment (ICD-10-PCS; 2017-05-20)
PROC: HZ52ZZZ Individual Psychotherapy for Substance Abuse Treatment, Cognitive-Behavioral (ICD-10-PCS; 2017-05-20)
PROC: HZ59ZZZ Individual Psychotherapy for Substance Abuse Treatment, Supportive (ICD-10-PCS; 2017-05-20)
PROC: HZ56ZZZ Individual Psychotherapy for Substance Abuse Treatment, Psychoeducation (ICD-10-PCS; 2017-05-20)
DX: L03.114 Cellulitis of left upper limb (principal); J44.1 Chronic obstructive pulmonary disease with (acute) exacerbation; R56.9 Unspecified convulsions; F10.230 Alcohol dependence with withdrawal, uncomplicated; F11.23 Opioid dependence with withdrawal; Z21 Asymptomatic human immunodeficiency virus [HIV] infection status; B19.20 Unspecified viral hepatitis C without hepatic coma; Y90.0 Blood alcohol level of less than 20 mg/100 ml; Z59.0 Homelessness; F41.9 Anxiety disorder, unspecified; F17.210 Nicotine dependence, cigarettes, uncomplicated; F14.10 Cocaine abuse, uncomplicated; J45.909 Unspecified asthma, uncomplicated; R07.9 Chest pain, unspecified; M79.673 Pain in unspecified foot; J02.9 Acute pharyngitis, unspecified; E83.42 Hypomagnesemia